=== PATIENT | female | born 1955 | race Caucasian/White ===

== ENCOUNTER → 2017-01-22 | Outpatient (CLI) | payer MEDICARE, BC ==
--- NOTE | 2017-01-22 12:00 | CT ---
EXAMINATION TYPE: CT chest wo con DATE OF EXAM: 01/22/2017 COMPARISON: NONE HISTORY: Patient complains of shortness of breath and chronic cough. CT DLP: [address] of the chest was performed with lung and mediastinal window settings submitted. The la ck of contrast limits evaluation of the vascular, mediastinal and parenchymal structures including th e upper abdomen. LUNGS: The lungs are clear and free of infiltrate. No atelectasis. No pulmonary nodule or mass is de tected. No pleural effusion. No CT evidence of interstitial lung disease. MEDIASTINUM/JOANNA: Thoracic aorta is of normal caliber with limited evaluation given lack of contrast . The heart is not enlarged. No evidence for mediastinal mass. No lymph nodes greater than 1cm. UPPER ABDOMEN: No significant abnormality is seen. OTHER: No significant other abnormality. IMPRESSION: 1. No significant abnormality seen.
== END | disposition home or self-care (01) ==
LOC: RADCTMAIN 11:24
PROVIDERS: ATTEND Internal Medicine Pulmonary Disease
DX: R05 Cough (principal); R06.02 Shortness of breath
CPT/HCPCS: 71250

== ENCOUNTER → 2019-06-16 | Outpatient (CLI) | payer MEDICARE, BC ==
--- NOTE | 2019-06-18 13:42 | MM ---
Reason for exam: screening (asymptomatic). Last mammogram was performed 3 years and 3 months ago. History: Patient is postmenopausal. Family history of breast cancer in sister. Physical Findings: A clinical breast exam by your physician is recommended on an annual basis and results should be correlated with mammographic findings. MG Screening Mammo w CAD Bilateral CC and MLO view(s) were taken. Prior study comparison: March 22, 2016, bilateral MG 3d diag mammo w/cad [facility]. March 23, 2015, left breast mammogram, performed at [facility]. The breast tissue is heterogeneously dense. This may lower the sensitivity of mammography. There is chronic nodularity bilaterally. There is no dominant lesion. There is no discrete abnormality. No significant changes when compared with prior studies. ASSESSMENT: Benign, BI-RAD 2 RECOMMENDATION: Routine screening mammogram of both breasts in 1 year.
== END | disposition home or self-care (01) ==
LOC: RADMAMWWP 09:34
PROVIDERS: ATTEND Family Medicine
DX: Z12.31 Encounter for screening mammogram for malignant neoplasm of breast (principal)
CPT/HCPCS: 77067

== ENCOUNTER → 2023-02-26 | Outpatient (CLI) | payer MEDICARE, BC ==
[2023-02-26 20:29] LABS: HCT 43.7 % (37.2-46.3); MCH 31.8 pg (27.0-32.0); MCV 99.3 FL (80.0-97.0); Mean Platelet Volume 10.3 FL (9.5-12.2); NRBC Per 100 WBC 0 X 10*3/uL (0.00-0.01); Platelet Count 412 X 10*3/uL (140-440); RDW 13.5 % (11.5-14.5)
[2023-02-26 21:08] LABS: BUN/Creat Ratio 12.43 Ratio (12.00-20.00); Blood Urea Nitrogen 8.7 mg/dL (9.0-27.0); Calcium 9.7 mg/dL (8.7-10.3); Carbon Dioxide 26.2 mmol/L (21.6-31.8); Chloride 105 mmol/L (96-109); Glucose 91 mg/dL (70-110); Potassium 5.6 mmol/L (3.5-5.5); Sodium 143 mmol/L (135-145)
== END | disposition home or self-care (01) ==
LOC: LABWHC1 15:20
PROVIDERS: ATTEND Internal Medicine Cardiovascular Disease
DX: R06.02 Shortness of breath (principal)
CPT/HCPCS: 36415; 80048; 85027

== ENCOUNTER 2023-03-01 07:45 | Day surgery (SDC) | payer MEDICARE, BC ==
[2023-02-27 09:40] VITALS: BMI 29.2
[~2023-03-01 07:45] MED LIST: ALPRAZolam 0.25 MG TAB PO PRN; ALPRAZolam 0.5 MG TAB PO PRN; ASPIRIN 325 MG TAB PO STA; ATORVASTATIN 80 MG TAB PO STA; HEPARIN SODIUM,PORCINE (1 ML) 2,500 UNIT in SODIUM CHLORIDE 0.9% 250 ML IRRIGATION PRN; HEPARIN SODIUM,PORCINE 10,000 UNIT in SODIUM CHLORIDE 0.9% 1,000 ML IRRIGATION PRN; NITROGLYCERIN SL TABS 0.4 MG TAB SUBLINGUAL PRN
[2023-03-01] MEDS ORDERED: SODIUM CHLORIDE 0.9% 1,000 ML IV ONE ×2 (08:14→11:00)
[2023-03-01 08:26] LABS: Glucose,Whole Blood 114 mg/dL (70-110)
[2023-03-01 08:36] VITALS: RESP 16
[2023-03-01 08:44] LABS: Basophils % (A) 0 %; Eosinophils # (A) 0.2 k/uL (0-0.7); Eosinophils % (A) 2 %; HCT 42.6 % (34.0-46.0); HGB 14.1 gm/dL (11.4-16.0); Lymphocytes # (A) 2.5 k/uL (1.0-4.8); Lymphocytes % (A) 27 %; MCH 32.3 pg (25.0-35.0); MCHC 33.2 g/dL (31.0-37.0); MCV 97.4 fL (80.0-100.0); Mean Platelet Volume 7.5; Monocytes # (A) 0.5 k/uL (0-1.0); Monocytes % (A) 6 %; Neutrophils # (A) 5.8 k/uL (1.3-7.7); Neutrophils % (A) 63 %; Platelet Count 383 k/uL (150-450); RBC 4.37 m/uL (3.80-5.40); RDW 13.4 % (11.5-15.5); WBC 9.1 k/uL (3.8-10.6)
[2023-03-01 09:04] LABS: African American GFR (CKD) >90 (>60 ml/min/1.73 sqM); Anion Gap 6 mmol/L; Blood Urea Nitrogen 8 mg/dL (7-17); Carbon Dioxide 29 mmol/L (22-30); Chloride 101 mmol/L (98-107); Glucose 107 mg/dL (74-99); Non-African American GFR(CKD) >90 (>60 ml/min/1.73 sqM); Potassium 4.6 mmol/L (3.5-5.1); Sodium 136 mmol/L (137-145)
[2023-03-01] MEDS ORDERED: fentaNYL (PF) 50 MCG/ML 2 ML AMP ONE (09:06)
[2023-03-01] MEDS ORDERED: HEPARIN SODIUM 1,000 UN/ML (10ML VL) ONE (09:07)
[2023-03-01] MEDS ORDERED: fentaNYL (PF) 50 MCG/ML 2 ML AMP IVP ONE ×2 (09:23)
[2023-03-01] MEDS ORDERED: MIDAZOLAM 2 MG/2 ML VIAL IVP ONE ×2 (09:23→09:46)
[2023-03-01] MEDS ORDERED: LIDOCAINE 1% INJ 10MG/ML (5 ML VIAL-PF) SQ ONE (09:23)
[2023-03-01] MEDS ORDERED: LIDOCAINE 1% INJ 10MG/ML (20 ML MDV) ONE (09:28)
[2023-03-01] MEDS ORDERED: LIDOCAINE 1% INJ 10MG/ML (20 ML MDV) SQ ONE (09:32)
--- NOTE | 2023-03-01 10:21 | CC ---
CARDIAC CATHETERIZATION REPORT INDICATION: Unstable angina. PROCEDURE NOTE: After obtaining informed consent, left heart catheterization and coronary angiogram were performed via the right femoral artery using standard Babs catheters. The patient tolerated the procedure well without any obvious immediate complications. The patient received moderate conscious sedation. Total sedation time was 21 minutes. I initially attempted right radial artery access. I was unsuccessful, hence I proceeded with the femoral catheterization, which was completed uneventfully. FINDINGS: 1. HEMODYNAMICS: Left ventricular end-diastolic pressure is 18 mm. There is no significant gradient across the aortic valve. 2. LEFT VENTRICULOGRAM: Left ventriculogram is not performed. 3. ANGIOGRAPHIC DATA: a.Left main coronary artery: Left main coronary artery is a normal-sized vessel and is free of stenosis. Divides into left anterior descending coronary artery and circumflex coronary artery. b.Circumflex coronary artery is a nondominant vessel and is free of significant stenosis. LAD was previously stented and the patient developed a 90% in-stent restenosis within the LAD. c.Circumflex coronary artery is a nondominant vessel and is free of significant disease. Right coronary artery is a large dominant vessel that shows mild to moderate atherosclerotic plaque in its midportion. CONCLUSION: 90% focal in-stent restenosis involving LAD. PLAN: The patient will undergo angioplasty of the LAD by Dr. Flor Quarles, who performed her angioplasty in 2007. MMODL / IJN: [id number] /
[2023-03-01] MEDS ORDERED: IOPAMIDOL-370 100ML BTL INJ ONE ×2 (10:32→11:10)
[2023-03-01] MEDS ORDERED: HEPARIN SODIUM 1,000 UN/ML (10ML VL) IVP ONE (10:32)
[2023-03-01] MEDS ORDERED: NITROGLYCERIN 1000MCG/10ML SYRINGE INTRACORON ONE ×3 (10:46→11:02)
[2023-03-01] MEDS ORDERED: CLOPIDOGREL 75 MG TAB ONE (11:01)
[2023-03-01] MEDS ORDERED: CLOPIDOGREL 75 MG TAB PO ONE (11:05)
[2023-03-01] MEDS ORDERED: HEPARIN SODIUM 1,000 UN/ML (10ML VL) IV ONE (11:10)
[2023-03-01] MEDS ORDERED: HYDROcodone/APAP 7.5-325MG 1 EACH TAB PO PRN (12:20)
--- NOTE | 2023-03-01 13:27 | CC ---
CARDIAC CATHETERIZATION REPORT PROCEDURES PERFORMED: 1. Percutaneous transluminal coronary angioplasty and stenting of mid LAD, a restenoses lesion. Drug-eluting stent was used. 2. Intravascular ultrasound of mid LAD. PERFORMED BY: Dr. Lev Quarles. ANESTHESIA: Moderate conscious sedation time was 39 minutes. The patient was administered Versed. Oxygen saturation, hemodynamic, and EKG were monitored closely. CLINICAL INFORMATION: Ms. Rebecca Correia is a 67-year-old lady who underwent stenting of mid LAD performed by me in 2007. Since then, she has done well. Of late, she has been having increasing symptoms of shortness of breath. Stress test was unremarkable, but given her persistent symptoms, Dr. Cui performed a cardiac cath which revealed that the previous stent in the mid LAD in the proximal portion as well as proximal to the stent itself had a lesion of about 80% to 90%. The mid and distal aspect of the stent was widely patent. She was advised intervention in the same setting. PROCEDURE NOTE: The existing 6-Turkish introducer in the right femoral artery was used to perform procedure. I used a JL3.5 guide catheter and a Run-through wire. Lesion was crossed. The patient received a total of 7000 units of heparin. ACT was 221. Additional 1000 units of heparin was given. The patient also received 600 mg of Plavix and she will be on aspirin and Plavix combination without interruption for 1 year. I used a Run-through wire to cross the lesion. Predilatation was performed with a 2.75 caliber 15 mm NC Trek balloon. I then deployed a 3.25 caliber 18 mm long stent and the proximal portion of this new stent was placed before the previous stent and the distal aspect extended into the previous stent. A good angiographic result was achieved. The stent was deployed at high pressures but there was a portion in the proximal area of the stent that had residual narrowing. There seemed to be incomplete expansion in the proximal portion of the stent. I addressed this with a 3.5 caliber NC Trek balloon. Following this, there was significant improvement. I then performed intravascular ultrasound and noted that the mid and distal aspect of the stent was widely patent, but the proximal portion had still significant calcification and some suboptimal apposition.. I therefore used a chocolate balloon of 3.5 caliber 15 mm length and given inflation up to 14 atmospheres. Excellent angiographic result was achieved. Previously area was of concern was reviewed and that area looked very good angiographically. The sheath was taken out, and Angio-Seal device used to secure hemostasis. The results were discussed with the patient and her daughter. Excellent angiographic result without complication was achieved and the patient will be discharged tomorrow if she remains stable. MMBETH / FÉLIX: [id number] / MTDD
[2023-03-01] MEDS: SODIUM CHLORIDE 0.9% 1,000 ML IV SCH (14:28)
[2023-03-01] MEDS: SODIUM CHLORIDE 0.9% 1,000 ML in EMPTY BAG 1 BAG IV SCH ×2 (14:28→20:18)
[2023-03-01] MEDS: METOPROLOL TARTRATE 25 MG TAB PO SCH (20:50)
[2023-03-01] MEDS: NON FORMULARY DRUG (Buprenorphine-Nalox 8-2 Mg Tab 1 EACH Tablet) SUBLINGUAL SCH (20:51)
[2023-03-01] MEDS: lisinopriL 20 MG TAB PO SCH (20:51)
[2023-03-01] MEDS ORDERED: ATORVASTATIN 80 MG TAB PO SCH (21:00)
[2023-03-02] MEDS: SODIUM CHLORIDE 0.9% 1,000 ML IV SCH (02:00)
[2023-03-02] MEDS ORDERED: LEVOTHYROXINE 100 MCG TAB PO SCH (06:30)
[2023-03-02 07:20] LABS: Basophils % (A) 0 %; Eosinophils # (A) 0.2 k/uL (0-0.7); Eosinophils % (A) 2 %; HCT 40.7 % (34.0-46.0); HGB 13.3 gm/dL (11.4-16.0); Lymphocytes # (A) 1.7 k/uL (1.0-4.8); Lymphocytes % (A) 19 %; MCH 31.9 pg (25.0-35.0); MCHC 32.8 g/dL (31.0-37.0); MCV 97.3 fL (80.0-100.0); Mean Platelet Volume 7.6; Monocytes # (A) 0.4 k/uL (0-1.0); Monocytes % (A) 5 %; Neutrophils # (A) 6.6 k/uL (1.3-7.7); Neutrophils % (A) 72 %; Platelet Count 338 k/uL (150-450); RBC 4.18 m/uL (3.80-5.40); RDW 13.5 % (11.5-15.5); WBC 9.1 k/uL (3.8-10.6)
[2023-03-02 07:36] VITALS: BP 149/84; PULSE 71; TEMP 98.2
[2023-03-02 07:51] LABS: African American GFR (CKD) >90 (>60 ml/min/1.73 sqM); Anion Gap 5 mmol/L; Blood Urea Nitrogen 9 mg/dL (7-17); Calcium 8.7 mg/dL (8.4-10.2); Carbon Dioxide 26 mmol/L (22-30); Chloride 108 mmol/L (98-107); Glucose 124 mg/dL (74-99); Non-African American GFR(CKD) >90 (>60 ml/min/1.73 sqM); Potassium 4.5 mmol/L (3.5-5.1); Sodium 139 mmol/L (137-145)
[2023-03-02] MEDS: lisinopriL 20 MG TAB PO SCH (08:53)
[2023-03-02] MEDS: METOPROLOL TARTRATE 25 MG TAB PO SCH (08:53)
[2023-03-02] MEDS ORDERED: CLOPIDOGREL 75 MG TAB PO SCH (09:00)
[2023-03-02] MEDS ORDERED: ISOSORBIDE MONONITRATE ER 60 MG TAB.ER.24H PO SCH (09:00)
[2023-03-02] MEDS ORDERED: ASPIRIN 81 MG PO SCH (09:00)
[2023-03-02] MEDS: NON FORMULARY DRUG (Buprenorphine-Nalox 8-2 Mg Tab 1 EACH Tablet) SUBLINGUAL SCH (09:38)
--- NOTE | 2023-03-02 10:36 | P.PN ---
Subjective Progress Note Date: 03/02/23 SUBJECTIVE: Patient is seen and examined at bedside this a.m. with no concerns of bleeding or hematoma from the right femoral groin axis site. She delivered the procedure well without any complications. She denies having any chest pain chest pressure or shortness of breath. She is medically stable PHYSICAL EXAMINATION Vital signs reviewed. Head: Normocephalic. Eyes: Sclerae nonicteric. Neck: Brisk carotid upstroke, no jugular venous distention. Lungs: Clear to auscultation. Heart: Regular rate and rhythm, S1-S2, no S3, no murmur or rub. Abdomen: Soft nontender, positive bowel sounds no organomegaly. Extremities: No edema, intact distal pulses. Neurological exam is nonfocal ASSESSMENT CAD status post PCI PLAN Continue dual antiplatelet therapy. Continue other cardiac medications without any changes Patient is okay to be discharged from cardiac standpoint Follow-up outpatient Objective - Vital Signs Vital signs: Vital Signs Temp 98.2 F 03/02/23 07:00 Pulse 71 03/02/23 07:00 Resp 16 03/02/23 07:00 BP 149/84 03/02/23 07:00 Pulse Ox 93 L 03/02/23 07:00 FiO2 Intake & Output 03/01/23 03/02/23 03/02/23 18:59 06:59 18:59 Intake Total 950 Balance 950 Weight 72.2 kg Intake: IV 950 Other: # Voids 2 - Labs CBC & Chem 7: 03/02/23 06:40 03/02/23 06:40 Labs: Abnormal Lab Results - Last 24 Hours (Table) 03/02/23 Range/Units 06:40 Chloride 108 H (98-107) mmol/L Glucose 124 H (74-99) mg/dL
== END 2023-03-02 10:37 | disposition home or self-care (01) ==
LOC: CATHCVL 07:45 → 6NMEDSUR 11:17 → CATHCVL 03-02 10:37
PROVIDERS: ATTEND Internal Medicine Cardiovascular Disease
DX: I25.110 Atherosclerotic heart disease of native coronary artery with unstable angina pectoris (principal); I10 Essential (primary) hypertension; F17.210 Nicotine dependence, cigarettes, uncomplicated; E78.2 Mixed hyperlipidemia; Z79.899 Other long term (current) drug therapy
CPT/HCPCS: 92978; 93458; 80048 ×2; 85025 ×2; C9600; C1760; C1769 ×3; C1887; C1894 ×2; C1753; C1874; C1725 ×3; J2250; J2001 ×2; J3010; J1644; Q9967; J2305